=== PATIENT | male | born 1995 | race Caucasian/White ===

== ENCOUNTER 2017-12-20 19:04 | Inpatient (IN) | payer SELFPAY ==
[~2017-12-20] VITALS: Ht 175.3 cm; Wt 68.2 kg
[2017-12-20 19:24] VITALS: BP 121/59; PULSE 111; RESP 20; TEMP 100.9; O2SAT 96
[2017-12-20 21:07] VITALS: BP 130/62; PULSE 72; RESP 18; O2SAT 98
[2017-12-20] MEDS ORDERED: SODIUM CHLOR 0.9% 1000 ML INJ 1,000 ML IV SCH (21:07)
--- NOTE | 2017-12-20 21:13 | PD ---
HPI Chief Complaint: Skin Problem Time Seen by Provider: 20:57 Travel History International Travel<30 days: No Contact w/Intl Traveler<30days: No Traveled to known affect area: No History of Present Illness HPI This is a 22-year-old male with history of asthma who presents for evaluation of bilateral hand pain. Symptoms started 2 days ago. He reports throbbing pain primarily in his left hand but he has some pain in his right hand, particularly his right fifth finger. Pain is worse with movement of his hands. He reports fevers, chills, myalgias as well. He does report that 1 or 2 months ago he was "playing around with a knife" and he accidentally cut himself a few times in his hands. 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 He endorses frequent methamphetamine and marijuana use but denies any history of IV drug use. He denies any cough, congestion, chest pain, shortness of breath, abdominal pain, nausea or vomiting , dysuria or flank pain. He reports that he moved to [facility] from [place] in September. He has no local primary care physician. No other complaints at this time. [facility] Past Medical History Asthma: Yes Tetanus Vaccination: < 5 Years Influenza Vaccination: No Past Surgical History Other Surgery: Yes (hernia ) Social History Alcohol Use: No Tobacco Use: Yes Substance Use: Yes (meth ) Allergies-Medications (Allergen,Severity, Reaction): Coded Allergies: No Known Allergies (Unverified , 12/20/17) Review of Systems Except as stated in HPI: all other systems reviewed are Neg Physical Exam Narrative GENERAL: This is a well-developed well-nourished male who appears anxious and jittery. He is tachycardic and febrile. SKIN: Warm and dry. Examination of the left hand reveals generalized pain. There are some areas of induration and scabbing on several of the fingers. Examination of the right hand reveals some tenderness to palpation particularly the right fifth finger. There are healing incisions on several fingers of the right hand with some hypertrophic skin formation and erythema. There is no fluctuance or drainage. Patient maintains full range of motion of both hands but he has pain with range of motion activities. There is dried paint on both hands as well. There is no proximal streaking or axillary lymphadenopathy. HEAD: Atraumatic. Normocephalic. EYES: Pupils equal and round. No scleral icterus. No injection or drainage. ENT: No nasal bleeding or discharge. Mucous membranes pink and moist. NECK: Trachea midline. No JVD. Neck supple with full range of motion. CARDIOVASCULAR: Regular rate and rhythm. No murmur appreciated. RESPIRATORY: No accessory muscle use. Diffuse wheezing bilaterally. GASTROINTESTINAL: Abdomen soft, non-tender, nondistended. Hepatic and splenic margins not palpable. MUSCULOSKELETAL: No obvious deformities. No clubbing. No cyanosis. No edema. NEUROLOGICAL: Awake and alert. No obvious cranial nerve deficits. Motor grossly within normal limits. Normal speech. Data Data Last Documented VS Vital Signs Date Time Temp Pulse Resp B/P (MAP) Pulse Ox O2 Delivery O2 Flow Rate FiO2 12/20/17 21:48 98 21 12/20/17 21:07 72 18 130/62 (84) Room Air 12/20/17 19:24 100.9 Orders Orders Complete Blood Count With Diff (12/20/17 19:25) Basic Metabolic Panel (Bmp) (12/20/17 19:25) Act Partial Throm Time (Ptt) (12/20/17 19:25) Prothrombin Time / Inr (Pt) (12/20/17 19:25) Lactic Acid Sepsis Protocol (12/20/17 19:25) Sepsis Workup Initiated (12/20/17 ) Urinalysis - C+S If Indicated (12/20/17 21:07) Influenzae A/B Antigen (12/20/17 21:07) Blood Culture (12/20/17 21:07) Iv Access Insert/Monitor (12/20/17 21:07) Ecg Monitoring (12/20/17 21:07) Sodium Chlor 0.9% 1000 Ml Inj (Ns 1000 M (12/20/17 21:07) Ketorolac Inj (Toradol Inj) (12/20/17 21:15) Chest, Single Ap (12/20/17 21:07) Albuterol-Ipratropium Neb (Duoneb Neb) (12/20/17 21:15) Drug Screen, Random Urine (12/20/17 21:07) Hand, Complete (Abq5gue) (12/20/17 ) Hand, Complete (Iir1fty) (12/20/17 ) Piperacil-Tazo 4.5 Gm Premix (Zosyn 4.5 (12/20/17 22:15) Vancomycin Inj (Vancomycin Inj) (12/20/17 22:15) Admit Order (Ed Use Only) (12/20/17 22:30) Labs Laboratory Tests Test 12/20/17 21:00 12/20/17 21:10 Urine Opiates Screen NEG Urine Barbiturates Screen NEG Urine Amphetamines Screen POS Urine Benzodiazepines Screen NEG Urine Cocaine Screen NEG Urine Cannabinoids Screen POS White Blood Count 11.2 TH/MM3 Red Blood Count 4.28 MIL/MM3 Hemoglobin 12.6 GM/DL Hematocrit 36.7 % Mean Corpuscular Volume 85.6 FL Mean Corpuscular Hemoglobin 29.5 PG Mean Corpuscular Hemoglobin Concent 34.4 % Red Cell Distribution Width 13.5 % Platelet Count 174 TH/MM3 Mean Platelet Volume 8.1 FL Neutrophils (%) (Auto) 69.9 % Lymphocytes (%) (Auto) 13.4 % Monocytes (%) (Auto) 12.6 % Eosinophils (%) (Auto) 3.6 % Basophils (%) (Auto) 0.5 % Neutrophils # (Auto) 7.8 TH/MM3 Lymphocytes # (Auto) 1.5 TH/MM3 Monocytes # (Auto) 1.4 TH/MM3 Eosinophils # (Auto) 0.4 TH/MM3 Basophils # (Auto) 0.1 TH/MM3 CBC Comment DIFF FINAL Differential Comment Prothrombin Time 11.5 SEC Prothromb Time International Ratio 1.1 RATIO Activated Partial Thromboplast Time 31.0 SEC Blood Urea Nitrogen 13 MG/DL Creatinine 0.94 MG/DL Random Glucose 108 MG/DL Calcium Level 8.4 MG/DL Sodium Level 132 MEQ/L Potassium Level 3.5 MEQ/L Chloride Level 97 MEQ/L Carbon Dioxide Level 29.0 MEQ/L Anion Gap 6 MEQ/L Estimat Glomerular Filtration Rate 99 ML/MIN Lactic Acid Level 0.7 mmol/L [facility] Medical Decision Making Medical Screen Exam Complete: Yes Emergency Medical Condition: Yes Medical Record Reviewed: Yes Differential Diagnosis Cellulitis, tenosynovitis, osteomyelitis, pneumonia, bacteremia, sepsis Narrative Course The patient was placed on ECG monitoring pulse oximetry. Lab work, hand x-rays , chest x-ray, influenza antigen, urinalysis, urine drug screen have been ordered. IV fluids and Toradol have been ordered. Lab work is been reviewed. CBC reveals WBC count of 11.2, hemoglobin 12.6, BMP reveals a sodium 132, chloride 97, glucose 108, calcium 8.4. Lactic acid within normal limits. Right hand x-ray reveals soft tissue swelling without fracture. Left hand x-ray reveals no acute abnormalities. Chest x-ray reveals no acute abnormalities. At this point given the patient's fever, tachycardia, plan would be to admit him for IV antibiotics pending blood culture results. He is agreeable at this time. IV vancomycin and Zosyn have been initiated. Sepsis Criteria SIRS Criteria (2 or more): Temp > 100.9 or < 96.8, Heart rate over 90 Criteria Outcome: Meets sepsis criteria Diagnosis Primary Impression: Sepsis Additional Impressions: Cellulitis of hand, right Cellulitis of hand, left Admitting Information Admitting Physician Requests: Admit Sebastian Dudley Dec 20, 2017 21:13
[2017-12-20] MEDS ORDERED: RESP: ALBUTEROL 2.5 MG/IPRATROPIUM 0.5 MG NEB (SCH) INH ONE (21:15)
[2017-12-20] MEDS ORDERED: KETOROLAC TROMETHAMINE 30 MG/ML (IVP) VIAL IVP ONE (21:15)
[2017-12-20 21:33] LABS: AUTOMATED NEUTROPHIL # 7.8 TH/MM3 (1.8-7.7); BASOPHIL # 0.1 TH/MM3 (0-0.2); BASOPHIL % 0.5 % (0.0-2.0); EOSINOPHIL # 0.4 TH/MM3 (0-0.4); EOSINOPHIL % 3.6 % (0.0-4.0); HEMATOCRIT 36.7 % (39.0-51.0); HEMOGLOBIN 12.6 GM/DL (13.0-17.0); LYMPH % 13.4 % (9.0-44.0); LYMPHOCYTE # 1.5 TH/MM3 (1.0-4.8); MEAN CELL VOLUME 85.6 FL (80.0-100.0); MEAN CORPUSCULAR HEMOGLOBIN 29.5 PG (27.0-34.0); MEAN CORPUSCULAR HGB CONC 34.4 % (32.0-36.0); MEAN PLATELET VOLUME 8.1 FL (7.0-11.0); MONO % 12.6 % (0.0-8.0); MONOCYTE # 1.4 TH/MM3 (0-0.9); NEUT % 69.9 % (16.0-70.0); PLATELET COUNT 174 TH/MM3 (150-450); RED BLOOD COUNT 4.28 MIL/MM3 (4.50-5.90); RED CELL DISTRIBUTION WIDTH 13.5 % (11.6-17.2); WHITE BLOOD COUNT 11.2 TH/MM3 (4.0-11.0)
[2017-12-20 21:48] VITALS: O2SAT 98
--- NOTE | 2017-12-20 21:50 | RADRPT ---
EXAM DATE/TIME: 12/20/2017 21:32 [facility] COMPARISON: No previous studies available for comparison. INDICATIONS : Fever for 2 days. MEDICAL HISTORY : None. SURGICAL HISTORY : None. ENCOUNTER: Initial ACUITY: 1 day PAIN SCORE: 0/10 LOCATION: Bilateral chest FINDINGS: A single view of the chest demonstrates the lungs to be symmetrically aerated without evidence of mas s, infiltrate or effusion. The cardiomediastinal contours are unremarkable. Osseous structures are intact. CONCLUSION: No acute disease. Shai Wood MD on December 20, 2017 at 21:48 Board Certified Radiologist. This report was verified electronically.
--- NOTE | 2017-12-20 21:51 | RADRPT ---
EXAM DATE/TIME: 12/20/2017 21:32 [facility] COMPARISON: No previous studies available for comparison. INDICATIONS : Right hand swelling. No injury. MEDICAL HISTORY : None. SURGICAL HISTORY : None. ENCOUNTER: Initial ACUITY: 2 days PAIN SCORE: 8/10 LOCATION: Right hand. FINDINGS: Three view examination of the right hand demonstrates soft tissue swelling without dislocation, or fr acture. The carpal bones appear intact. The interphalangeal and metacarpophalangeal joints are int act. Bony mineralization is normal. CONCLUSION: Soft tissue swelling without fracture. Shai Wood MD on December 20, 2017 at 21:48 Board Certified Radiologist. This report was verified electronically.
--- NOTE | 2017-12-20 21:52 | RADRPT ---
EXAM DATE/TIME: 12/20/2017 21:34 [facility] COMPARISON: No previous studies available for comparison. INDICATIONS : Left hand swelling. No injury. MEDICAL HISTORY : None. SURGICAL HISTORY : None. ENCOUNTER: Initial ACUITY: 2 days PAIN SCORE: 8/10 LOCATION: Left hand. FINDINGS: Three view examination of the left hand demonstrates no soft tissue swelling, dislocation, or fractur e. The carpal bones appear intact. The interphalangeal and metacarpophalangeal joints are intact. Bony mineralization is normal. CONCLUSION: No acute bony abnormality the. Shai Wood MD on December 20, 2017 at 21:49 Board Certified Radiologist. This report was verified electronically.
[2017-12-20 22:02] LABS: INTERNATIONAL NORMALIZED RATIO 1.1 RATIO; PROTHROMBIN TIME - PATIENT 11.5 SEC (9.8-11.6)
[2017-12-20 22:04] LABS: CALCIUM 8.4 MG/DL (8.5-10.1); CREATININE 0.94 MG/DL (0.60-1.30)
[2017-12-20] MEDS ORDERED: VANCOMYCIN INJ 1,000 MG in SODIUM CHLOR 0.9% 250 ML INJ 250 ML IV ONE (22:15)
[2017-12-20] MEDS ORDERED: PIPERACIL-TAZO 4.5 GM PREMIX 100 ML IV ONE (22:15)
[2017-12-20 22:24] LABS: BILIRUBIN, URINE NEG (NEG); BLOOD, URINE NEG (NEG); GLUCOSE,URINE NEG (NEG); KETONE, URINE NEG (NEG); NITRITE,URINE NEG (NEG); SQUAMOUS EPITHELIAL CELL URINE <1 /hpf (0-5); URINE COLOR LIGHT-YELLOW (YELLW/STRAW); URINE LEUKOCYTE ESTERASE NEG (NEG)
[2017-12-20 23:28] VITALS: TEMP 98.6
[2017-12-21] MEDS ORDERED: SODIUM CHLOR 0.9% 1000 ML INJ 1,000 ML IV SCH (00:51)
[2017-12-21] MEDS ORDERED: MAGNESIUM HYDROXIDE SUSP 30 ML CUP PO PRN (01:00)
[2017-12-21] MEDS ORDERED: ONDANSETRON HCL 4 MG/2 ML VIAL IVP PRN (01:00)
[2017-12-21] MEDS ORDERED: ACETAMINOPHEN 325 MG TAB PO PRN (01:00)
[2017-12-21] MEDS ORDERED: BISACODYL 10 MG SUPP RECTAL PRN (01:00)
[2017-12-21] MEDS ORDERED: SODIUM CHLORIDE 0.9% FLUSH 10 ML FLUSH IV FLUSH PRN (01:00)
[2017-12-21] MEDS ORDERED: LACTULOSE SYRUP 20 GM/30 ML CUP PO PRN (01:00)
[2017-12-21] MEDS ORDERED: SENNOSIDES 8.6 MG TAB PO PRN (01:00)
[2017-12-21] MEDS ORDERED: NALOXONE HCL 0.4 MG/ML AMP IV PUSH PRN (01:00)
[2017-12-21] MEDS ORDERED: Vancomycin Consult Pharmacy 1 EA OTHER SCH (01:00)
[2017-12-21 01:08] VITALS: BP 102/64; PULSE 74; RESP 16; O2SAT 97
--- NOTE | 2017-12-21 01:42 | HHI.HP ---
[facility] No Primary Care Physician Admission Diagnosis Bilateral hand cellulitis, sepsis Diagnoses: Travel History International Travel<30 Days: No Contact w/Intl Traveler <30 Da: No Traveled to Known Affected Are: No History of Present Illness 22-year-old male with a past medical history significant for methamphetamine abuse and asthma presents to the emergency department for evaluation of bilateral hand pain. The patient reports that his symptoms started approximately 2 days ago. He states that the pain is throbbing and in his left hand greater than right. The pain is worse with the movement of his hands although he is able to fully flex and extend all 5 digits bilaterally. He reports subjective fevers/chills. The patient states that he was playing with a knife 2 months ago when he accidentally cut himself a few times on his hands. No lacerations are visible at this time. The patient denies chest pain or shortness of breath. No abdominal pain. No nausea/vomiting/diarrhea. Review of Systems Except as stated in HPI: all other systems reviewed are Neg Past Family Social History Past Medical History Asthma Past Surgical History None Reported Medications Reported Meds & Active Scripts Active No Active Prescriptions or Reported Medications Allergies: Coded Allergies: No Known Allergies (Unverified , 12/20/17) Family History Negative for CAD/DM. Social History Patient denies any IV drug abuse. Admits to methamphetamine use. Refuses to answer all other questions. Physical Exam Vital Signs Vital Signs Date Time Temp Pulse Resp B/P (MAP) Pulse Ox O2 Delivery O2 Flow Rate FiO2 12/21/17 01:08 74 16 102/64 (77) 97 Room Air 12/20/17 23:28 98.6 12/20/17 22:55 16 12/20/17 21:48 98 21 12/20/17 21:07 72 18 130/62 (84) 98 Room Air 12/20/17 19:24 100.9 111 20 121/59 (79) 96 Physical Exam GENERAL: male curled up in bed sleeping SKIN: Erythema and swelling in bilateral hands. 3 small black lesions on the fingers of left hand in various stages of healing. No splinter hemorrhages. HEAD: Atraumatic. Normocephalic. No temporal or scalp tenderness. EYES: Pupils equal round and reactive. Extraocular motions intact. No scleral icterus. No injection or drainage. ENT: Nose without bleeding, purulent drainage or septal hematoma. Throat without erythema, tonsillar hypertrophy or exudate. Uvula midline. Airway patent. NECK: Trachea midline. No JVD or lymphadenopathy. Supple, nontender, no meningeal signs. CARDIOVASCULAR: Regular rate and rhythm without murmurs, gallops, or rubs. RESPIRATORY: Clear to auscultation. Breath sounds equal bilaterally. No wheezes , rales, or rhonchi. GASTROINTESTINAL: Abdomen soft, non-tender, nondistended. No hepato-splenomegaly , or palpable masses. No guarding. MUSCULOSKELETAL: Extremities without clubbing, cyanosis, or edema. No joint tenderness, effusion, or edema noted. No calf tenderness. Pain with movement of bilateral fingers. NEUROLOGICAL: Awake and alert. Cranial nerves II through XII intact. Motor and sensory grossly within normal limits. Normal speech. Laboratory Laboratory Tests Test 12/20/17 21:00 12/20/17 21:10 Urine Color LIGHT-YELLOW Urine Turbidity CLEAR Urine pH 6.0 Urine Specific B[place] 1.011 Urine Protein NEG Urine Glucose (UA) NEG Urine Ketones NEG Urine Occult Blood NEG Urine Nitrite NEG Urine Bilirubin NEG Urine Urobilinogen LESS THAN 2.0 Urine Leukocyte Esterase NEG Urine RBC LESS THAN 1 Urine WBC LESS THAN 1 Urine Squamous Epithelial Cells <1 Microscopic Urinalysis Comment CATH-CULT NOT IND Urine Opiates Screen NEG Urine Barbiturates Screen NEG Urine Amphetamines Screen POS Urine Benzodiazepines Screen NEG Urine Cocaine Screen NEG Urine Cannabinoids Screen POS White Blood Count 11.2 Red Blood Count 4.28 Hemoglobin 12.6 Hematocrit 36.7 Mean Corpuscular Volume 85.6 Mean Corpuscular Hemoglobin 29.5 Mean Corpuscular Hemoglobin Concent 34.4 Red Cell Distribution Width 13.5 Platelet Count 174 Mean Platelet Volume 8.1 Neutrophils (%) (Auto) 69.9 Lymphocytes (%) (Auto) 13.4 Monocytes (%) (Auto) 12.6 Eosinophils (%) (Auto) 3.6 Basophils (%) (Auto) 0.5 Neutrophils # (Auto) 7.8 Lymphocytes # (Auto) 1.5 Monocytes # (Auto) 1.4 Eosinophils # (Auto) 0.4 Basophils # (Auto) 0.1 CBC Comment DIFF FINAL Differential Comment Prothrombin Time 11.5 Prothromb Time International Ratio 1.1 Activated Partial Thromboplast Time 31.0 Blood Urea Nitrogen 13 Creatinine 0.94 Random Glucose 108 Calcium Level 8.4 Sodium Level 132 Potassium Level 3.5 Chloride Level 97 Carbon Dioxide Level 29.0 Anion Gap 6 Estimat Glomerular Filtration Rate 99 Lactic Acid Level 0.7 Date/Time Source Procedure Growth Status 12/20/17 21:10 Blood Peripheral Aerobic Blood Culture Pending Received 12/20/17 21:10 Blood Peripheral Anaerobic Blood Culture Pending Received 12/20/17 22:10 Nasal Aspirate Influenza Types A,B Antigen (CHASE) - Final NEGATIVE FOR FLU A AND B ANTIGEN.... Complete Result Diagram: 12/20/17210912/20/172109 Caprini VTE Risk Assessment Kadenrini VTE Risk Assessment: No/Low Risk (score <= 1) Caprini Risk Assessment Model Point Value = 1 Point Value = 2 Point Value = 3 Point Value = 5 Age 41-60 Minor surgery BMI > 25 kg/m2 Swollen legs Varicose veins or History of unexplained or recurrent spontaneous Oral contraceptives or hormone replacement Sepsis (< 1 month) Serious lung disease, including pneumonia (< 1 month) Abnormal pulmonary function Acute myocardial infarction Congestive heart failure (< 1 month) History of inflammatory bowel disease Medical patient at bed rest Age 61-74 Arthroscopic surgery Major open surgery (> 45 min) Laparoscopic surgery (> 45 min) Malignancy Confined to bed (> 72 hours) Immobilizing plaster cast Central venous access Age >= 75 History of VTE Family history of VTE Factor V Leiden Prothrombin [id number] Lupus anticoagulant Anticardiolipin antibodies Elevated serum homocysteine Heparin-induced thrombocytopenia Other congenital or acquired thrombophilia Stroke (< 1 month) Elective arthroplasty Hip, pelvis, or leg fracture Acute spinal cord injury (< 1 month) Prophylaxis Regimen Total Risk Factor Score Risk Level Prophylaxis Regimen 0-1 Low Early ambulation 2 Moderate Order ONE of the following: *Sequential Compression Device (SCD) *Heparin 5000 units SQ BID 3-4 Higher Order ONE of the following medications: *Heparin 5000 units SQ TID *Enoxaparin/Lovenox 40 mg SQ daily (WT < 150 kg, CrCl > 30 mL/min) *Enoxaparin/Lovenox 30 mg SQ daily (WT < 150 kg, CrCl > 10-29 mL/min) *Enoxaparin/Lovenox 30 mg SQ BID (WT < 150 kg, CrCl > 30 mL/min) AND/OR *Sequential Compression Device (SCD) 5 or more Highest Order ONE of the following medications: *Heparin 5000 units SQ TID (Preferred with Epidurals) *Enoxaparin/Lovenox 40 mg SQ daily (WT < 150 kg, CrCl > 30 mL/min) *Enoxaparin/Lovenox 30 mg SQ daily (WT < 150 kg, CrCl > 10-29 mL/min) *Enoxaparin/Lovenox 30 mg SQ BID (WT < 150 kg, CrCl > 30 mL/min) AND *Sequential Compression Device (SCD) Assessment and Plan Assessment and Plan Assessment/plan: 1. Bilateral hand cellulitis/sepsis Range of motion is not limited however is painful Mild leukocytosis, fever and tachycardia Vancomycin/Zosyn IV fluid hydration Blood cultures pending Echo pending given patient's history of methamphetamine abuse Consult infectious disease of blood cultures/echo positive 2. Methamphetamine abuse Cessation counseling provided FEN Regular diet Electrolytes: Monitor and replete as needed NS at 100 cc/hour Physician Certification 2 Midnight Certification Type: Admission for Inpatient Services Order for Inpatient Services The services are ordered in accordance with Medicare regulations or non- Medicare payer requirements, as applicable. In the case of services not specified as inpatient-only, they are appropriately provided as inpatient services in accordance with the 2-midnight benchmark. Estimated LOS (days): 2 2 days is the estimated time the patient will need to remain in the hospital, assuming treatment plan goals are met and no additional complications. Post-Hospital Plan: Not yet determined Betty Lyons MD Dec 21, 2017 01:42
[2017-12-21 02:00] VITALS: BP 117/56; PULSE 71; RESP 18; TEMP 98.7; O2SAT 99
[2017-12-21 04:00] VITALS: BP 146/86; PULSE 98; RESP 18; TEMP 98.1; O2SAT 98
[2017-12-21] MEDS ORDERED: PIPERACIL-TAZO 3.375 GM PREMIX 50 ML IV SCH (04:00)
[2017-12-21] MEDS ORDERED: SODIUM CHLORIDE 0.9% FLUSH 10 ML FLUSH IV FLUSH SCH (09:00)
[2017-12-21] MEDS ORDERED: DOCUSATE SODIUM 50 MG/SENNA 8.6 MG TAB PO SCH (09:00)
[2017-12-21] MEDS ORDERED: VANCOMYCIN INJ 1,000 MG in SODIUM CHLOR 0.9% 250 ML INJ 250 ML IV SCH (10:00)
== END 2017-12-21 06:56 | disposition left against medical advice (07) | DRG 872 ==
LOC: NEPE 19:04 → NEDA 22:31 → NEDH 12-21 02:35
PROVIDERS: ADMIT Hospitalist; ATTEND Hospitalist
DX: A41.9 Sepsis, unspecified organism (principal); F15.10 Other stimulant abuse, uncomplicated; L03.113 Cellulitis of right upper limb; L03.114 Cellulitis of left upper limb; S61.218A Laceration without foreign body of other finger without damage to nail, initial encounter; F12.90 Cannabis use, unspecified, uncomplicated; W26.0XXA Contact with knife, initial encounter; Z72.0 Tobacco use
CPT/HCPCS: 71045; 73130; 80048; 80307; 81001; 83605; 85025; 85610; 85730; 87040; 87804; 94664; 96374; 96375; J1885; J2543; J3370; J7030; J7050

== ENCOUNTER 2017-12-21 12:50 | Emergency (ER) | payer SELFPAY ==
[~2017-12-21] VITALS: Ht 175.3 cm; Wt 68.0 kg
[2017-12-21 12:57] VITALS: BP 146/58; PULSE 92; RESP 18; TEMP 98.3; O2SAT 98
[2017-12-21 13:20] VITALS: BP 125/74; PULSE 85; RESP 21; O2SAT 98
[2017-12-21] MEDS ORDERED: DALBAVANCIN INJ 1,500 MG in DEXTROSE 5% IN WATE 500 ML INJ 500 ML IV STA ×2 (13:31)
[2017-12-21] MEDS: RESP: ALBUTEROL 2.5 MG/IPRATROPIUM 0.5 MG NEB (SCH) INH ×2 (13:37→13:38)
--- NOTE | 2017-12-21 13:43 | PD ---
HPI Chief Complaint: Skin Problem Time Seen by Provider: 13:19 Travel History International Travel<30 days: No Contact w/Intl Traveler<30days: No Traveled to known affect area: No History of Present Illness HPI Pt is a 22 year old male presenting to the ED for evaluation of bilateral hand swelling and blistering. Pt reports that it started getting worse Tuesday. He reports subjective fevers and chills. He states he felt nauseated this morning. He has multiple healing cuts to his hands and reports using bleach at work for the last few weeks. He reports pain 6/10 and states it is aching and throbbing. Symptoms onset was gradual, symptoms are moderate in nature. No alleviating factors. Pt states he was here for the same last night. PFSH Past Medical History Asthma: Yes Past Surgical History Other Surgery: Yes (hernia ) Social History Alcohol Use: No Tobacco Use: Yes (1/2 pack ) Substance Use: Yes (meth, pot ) Allergies-Medications (Allergen,Severity, Reaction): Coded Allergies: No Known Allergies (Unverified , 12/20/17) Reported Meds & Prescriptions Reported Meds & Active Scripts Active No Active Prescriptions or Reported Medications Review of Systems Except as stated in HPI: all other systems reviewed are Neg General / Constitutional: Positive: Fever, Chills Respiratory: Positive: Wheezing Gastrointestinal: Positive: Nausea Musculoskeletal: Positive: Myalgias, Edema, Pain Skin: Positive Change in Pigmentation, Positive Lesions Physical Exam Narrative GENERAL: Well developed, well nourished, alert male. Presenting in no acute distress. SKIN: Warm and dry. Left first finger has a 2cm blister to the medial aspect over the DIP joint. The right third finger has a 1cm blister to the lateral aspect over the PIP joint. Multiple healing abrasions to hands. HEAD: Atraumatic. Normocephalic. EYES: Pupils equal and round. No scleral icterus. No injection or drainage. ENT: No nasal bleeding or discharge. Mucous membranes pink and moist. NECK: Trachea midline. No JVD. CARDIOVASCULAR: Regular rate and rhythm. RESPIRATORY: No accessory muscle use. Wheezing throughout. GASTROINTESTINAL: Abdomen soft, non-tender, nondistended. Hepatic and splenic margins not palpable. MUSCULOSKELETAL: Extremities without clubbing, cyanosis, or edema. No obvious deformities. NEUROLOGICAL: Awake and alert. No obvious cranial nerve deficits. Motor grossly within normal limits. Five out of 5 muscle strength in the arms and legs. Normal speech. PSYCHIATRIC: Appropriate mood and affect; insight and judgment normal. Data Data Last Documented VS Vital Signs Date Time Temp Pulse Resp B/P (MAP) Pulse Ox O2 Delivery O2 Flow Rate FiO2 12/21/17 13:20 85 21 125/74 (91) 98 Room Air 12/21/17 12:57 98.3 Orders Orders Complete Blood Count With Diff (12/21/17 13:31) Case Management Consult (12/21/17 ) Asp:No Reaction To [place]/Vanc (Asp Crit (12/21/17 13:45) Asp: Does Not Meet Inpt Admit (Asp Crit: (12/21/17 13:45) Asp: Iv Antibiotics Admit Only (Asp Crit (12/21/17 13:45) Asp: Location Of [place] Admin (Asp Crit: (12/21/17 13:45) [facility] [place] (12/21/17 13:45) Dalbavancin Inj (Dalvance Inj) (12/21/17 13:31) [facility]vate (12/21/17 13:31) Document (12/21/17 13:31) Albuterol-Ipratropium Neb (Duoneb Neb) (12/21/17 13:45) MDM Medical Decision Making Medical Screen Exam Complete: Yes Emergency Medical Condition: Yes Medical Record Reviewed: Yes Interpretation(s) Vital Signs Date Time Temp Pulse Resp B/P (MAP) Pulse Ox O2 Delivery O2 Flow Rate FiO2 12/21/17 13:20 85 21 125/74 (91) 98 Room Air 12/21/17 12:57 98.3 92 18 146/58 (87) 98 Differential Diagnosis cellulitis vs contact dermatitis, vs sepsis vs asthma exacerbation vs other. Narrative Course Pt is a 22 year old male presenting for re-eval of BL hand edema and blistering. Medical record reviewed. Pt had labs drawn last night. Additionally he had a low grade temp. last night. He is afebrile now. He is wheezing on exam , he does not have an inhaler due to cost issues. Will repeat CBC now, additionally patient will be given Duonebs x 2 doses. Discussed with my attending physician. Patient is received Dalvance, he tolerated infusion. Patient is advised to keep wounds covered, clean and dry. He is advised to follow-up with a primary doctor at the [facility]. Furthermore patient can return to emergency department for any new worsening symptoms. Diagnosis Primary Impression: Cellulitis and abscess of unspecified site Referrals: [facility] Primary Care Physician Patient Instructions: Acute Wound Care (DC), Cellulitis (ED), General Instructions Additional Instructions: Keep wounds covered with dry dressing, keep them clean. Wash with soap and water Follow-up with your primary doctor or at the [facility] Return to emergency department for any new or worsening symptoms Avoid contact with possible irritant such as bleach Med/Other Pt SpecificInfo: No Change to Meds Scripts No Active Prescriptions or Reported Meds Disposition: 01 DISCHARGE HOME Condition: Stable Roxann Blancas Dec 21, 2017 13:43
[2017-12-21] MEDS ORDERED: ASP: No known hypersensitivity to Vanco, Telavancin, Dalbavancin OTHER ONE (13:45)
[2017-12-21] MEDS ORDERED: ASP: Does not meet inpatient admission criteria OTHER ONE (13:45)
[2017-12-21] MEDS ORDERED: ASP: Location of Dalbavancin administration OTHER ONE (13:45)
[2017-12-21] MEDS ORDERED: MISCELLANEOUS PHARMACY INFORMATION XX ONE (13:45)
[2017-12-21] MEDS ORDERED: ASP: Only reason for admit - IV antibiotics OTHER ONE (13:45)
[2017-12-21 15:58] LABS: HEMATOCRIT 37.1 % (39.0-51.0); HEMOGLOBIN 12.8 GM/DL (13.0-17.0); MEAN CELL VOLUME 86.1 FL (80.0-100.0); MEAN CORPUSCULAR HEMOGLOBIN 29.8 PG (27.0-34.0); MEAN CORPUSCULAR HGB CONC 34.6 % (32.0-36.0); MEAN PLATELET VOLUME 9.2 FL (7.0-11.0); PLATELET COUNT 184 TH/MM3 (150-450); RED BLOOD COUNT 4.31 MIL/MM3 (4.50-5.90); RED CELL DISTRIBUTION WIDTH 13.5 % (11.6-17.2); WHITE BLOOD COUNT 7.5 TH/MM3 (4.0-11.0)
--- NOTE | 2017-12-21 16:34 | PD ---
Data Data Last Documented VS Vital Signs Date Time Temp Pulse Resp B/P (MAP) Pulse Ox O2 Delivery O2 Flow Rate FiO2 12/21/17 16:07 (91) 12/21/17 13:20 85 21 98 Room Air 12/21/17 12:57 98.3 Orders Orders Complete Blood Count With Diff (12/21/17 13:31) Case Management Consult (12/21/17 ) Asp:No Reaction To [place]/Vanc (Asp Crit (12/21/17 13:45) Asp: Does Not Meet Inpt Admit (Asp Crit: (12/21/17 13:45) Asp: Iv Antibiotics Admit Only (Asp Crit (12/21/17 13:45) Asp: Location Of [place] Admin (Asp Crit: (12/21/17 13:45) [facility] Information ([facility] (12/21/17 13:45) Dalbavancin Inj (Dalvance Inj) (12/21/17 13:31) Elevate (12/21/17 13:31) Document (12/21/17 13:31) Albuterol-Ipratropium Neb (Duoneb Neb) (12/21/17 13:45) Wound Culture And Gram Stain (12/21/17 15:46) Ed Discharge Order (12/21/17 15:48) ^ Primary Dressing (12/21/17 15:48) Labs Laboratory Tests Test 12/21/17 15:00 White Blood Count 7.5 TH/MM3 Red Blood Count 4.31 MIL/MM3 Hemoglobin 12.8 GM/DL Hematocrit 37.1 % Mean Corpuscular Volume 86.1 FL Mean Corpuscular Hemoglobin 29.8 PG Mean Corpuscular Hemoglobin Concent 34.6 % Red Cell Distribution Width 13.5 % Platelet Count 184 TH/MM3 Mean Platelet Volume 9.2 FL CBC Comment AUTO DIFF MDM Supervised Visit with KARI: Yes Narrative Course The history, exam, and medical decision-making in the associated mid-level provider note were completed with my assistance. I reviewed and agree with the findings presented. I attest that I had a [id number] encounter with the patient on the same day, and personally performed and documented my assessment and findings in the medical record. *My assessment and Findings: Is a 22-year-old man who presents to the emergency department with what appears to be bilateral hand cellulitis. Possibly also contact dermatitis is unclear. Having said he had fever yesterday and a small elevation his white count. Would recommend VITO Gonzales, outpatient follow-up. Diagnosis Primary Impression: Cellulitis and abscess of unspecified site Referrals: [facility] Primary Care Physician Patient Instructions: General Instructions, Cellulitis (ED), Acute Wound Care ( [place]) Departure Forms: Tests/Procedures Additional Instruction: Keep wounds covered with dry dressing, keep them clean. Wash with soap and water Follow-up with your primary doctor or at the [facility] clinic Return to emergency department for any new or worsening symptoms Avoid contact with possible irritant such as bleach Scripts No Active Prescriptions or Reported Meds Disposition: 01 DISCHARGE HOME Condition: Stable Kenny Chappell MD Dec 21, 2017 16:34
[2017-12-21 17:13] LABS: BANDS 8 % (0-6); BASOPHILS 2 % (0-2); BURR CELLS 1+ (NORMAL); LYMPHOCYTES 15 % (9-44); MONOCYTES 11 % (0-8); POLYS (SEG NEUTROPHILS) 58 % (16-70)
== END 2017-12-21 16:08 | disposition home or self-care (01) ==
LOC: NEPE 12:50
DX: L03.113 Cellulitis of right upper limb (principal); L03.114 Cellulitis of left upper limb; L02.91 Cutaneous abscess, unspecified; F17.200 Nicotine dependence, unspecified, uncomplicated; R06.2 Wheezing
CPT/HCPCS: 85007; 85027; 87070; 94640; 94664; 96365; 99284; J0875; J7060